=== PATIENT | female | born 1965 | race Asian ===

== ENCOUNTER 2021-04-19 10:39 | Emergency (ER) | payer SELFPAY ==
[~2021-04-19] VITALS: Ht 170.2 cm; Wt 91.0 kg
[2021-04-19] MEDS ORDERED: IBUPROFEN 600MG TABLET PO STA (11:02)
[2021-04-19] MEDS ORDERED: IBUP-2029 PO (11:13)
[2021-04-19] MEDS ORDERED: AMOX-424 PO (11:13)
[2021-04-19] MEDS ORDERED: SULF1TAB48 PO (11:13)
[2021-04-19] MEDS ORDERED: CEFTRIAXONE SODIUM 1 G/VIAL IM ONE (11:15)
[2021-04-19] MEDS ORDERED: LIDOCAINE HCL 1% 10 MG/ML 10ML VIAL IJ NR (11:15)
[2021-04-19] MEDS ORDERED: LIDOCAINE HCL 1% 20ML VIAL (Pyxis) INJ INFIL ONE (11:15)
[2021-04-19 11:29] VITALS: BP 127/86
== END 2021-04-19 12:17 | disposition home or self-care (01) ==
LOC: ER 12:07
DX: H60.11 Cellulitis of right external ear (principal); Z98.890 Other specified postprocedural states
CPT/HCPCS: 96372; 99283; J0696; J3490